=== PATIENT | male | born 1935 | race Caucasian/White ===

== ENCOUNTER 2022-01-13 07:43 | Day surgery (SDC) | payer OTHER ==
[2022-01-12 13:28] LABS: Protime INR 0.96
[2022-01-12 13:31] LABS: Absolute Lymphocytes (CBC) 1.6 K/uL (0.7-4.9); Hematocrit 45.4 % (39.6-49.0); Lymphocytes % 20.1 % (15.3-44.8); MCV 96.2 fL (80-100); MPV 7.6 fL (7.6-11.3); RBC Red Blood Cell Count 4.72 M/uL (4.33-5.43)
[2022-01-12 13:39] LABS: Potassium 4.1 mmol/L (3.5-5.1)
[2022-01-12 13:48] LABS: SARS-CoV-2 Antigen Rapid Res Negative (Negative)
[2022-01-13] MEDS ORDERED: NA CHLORIDE 0.9% 500 ML ONE (07:58)
[2022-01-13] MEDS ORDERED: LIDOCAINE 1% MPF 2 ML AMPULE ONE (09:02)
[2022-01-13] MEDS ORDERED: FENTANYL CITR 100 MCG/2 ML ONE (09:03)
[2022-01-13] MEDS ORDERED: MIDAZOLAM HCL 2 MG/2 ML INJ ONE (09:03)
[2022-01-13] MEDS ORDERED: NITROGLYCERIN 100 MCG/ML SYR (for cath lab use only) IV ONE (09:04)
[2022-01-13] MEDS ORDERED: NA CHLORIDE 0.9% 0 ML IV ONE (09:04)
[2022-01-13] MEDS ORDERED: ATROPINE SULF 1 MG/10 ML SYR IV ONE (09:04)
[2022-01-13] MEDS ORDERED: LIDOCAINE 1% MPF 5 ML VIAL ONE (09:22)
[2022-01-13 10:59] VITALS: O2SAT 94
[2022-01-13 11:41] VITALS: BP 114/65
[2022-01-13 11:42] VITALS: TEMP 97
--- NOTE | 2022-01-16 06:39 | OP ---
Surgeon: Krishna Adler MD Procedure: Left heart catheterization, selective coronary arteriogram, left ventriculogram, common f emoral artery angiogram. Indication: Unstable angina and abnormal stress test. History Of Present Illness: Mr. Trejo is 86, brought to the [employer] today as an outpatient be cause of abnormal stress test, continued chest pain, and shortness of breath. He was prepped and shaggy ped in a routine sterile fashion. Given Versed and fentanyl for sedation. A 6-Grenadian sheath introdu varun in the right common femoral artery successfully using a 6-Grenadian sheath and 10 cc of Xylocaine. Angiography there was normal. Angio-Seal was used to close the case. Arielle catheter left and righ t was used to do the diagnostic catheterization. He was found to have normal coronaries. He tolerat ed the procedure well. There were no complications. Blood loss was 5 mL. Anesthesia: Total conscious sedation was 30 minutes. Final Diagnoses: 1.Normal coronary arteries. 2.Normal left ventricular function. 3.Normal left ventricular end-diastolic pressure. 4.Normal common femoral artery angiogram. Plan: Plan is for medical therapy. He can go home after 2 hours of bedrest from the Angio-Seal. I will see him in the office in 2 weeks. Case was discussed with him and his family and Dr. Nuno. NOEL/ANAIS Voice ID: [id number] Report ID: [id number]
== END 2022-01-13 11:43 | disposition home or self-care (01) ==
LOC: CCL 07:43
DX: I20.0 Unstable angina (principal); R06.02 Shortness of breath; R94.39 Abnormal result of other cardiovascular function study; Z88.6 Allergy status to analgesic agent; Z88.8 Allergy status to other drugs, medicaments and biological substances; Z20.822 Contact with and (suspected) exposure to COVID-19
CPT/HCPCS: 85025; 80048; 36415; 85610; 82947; 85730; 93458; 87811; C1893; Q9967; J2250; J3010; J7040; J0583

== ENCOUNTER 2022-02-15 01:51 | Emergency (ER) | payer OTHER ==
--- NOTE | 2022-02-15 03:36 | ER ---
Nurse's Notes [facility] Name: Vitor Trejo Age: 86 yrs Sex: Male : 1935 Arrival Date: 02/15/2022 Time: 01:53 Bed 26 Private MD: Diagnosis: Dyspnea;Cough Presentation: 02/15 01:59 Chief complaint: Patient states: "I have a cough and shortness of breath". Coronavirus as6 screen: Client presents with at least one sign or symptom that may indicate coronavirus-19. Standard/surgical mask placed on the client. Ebola Screen: No symptoms or risks identified at this time. Initial Sepsis Screen: Does the patient meet any 2 criteria? No. Patient's initial sepsis screen is negative. Does the patient have a suspected source of infection? No. Patient's initial sepsis screen is negative. Risk Assessment: Do you want to hurt yourself or someone else? Patient reports no desire to harm self or others. Onset of symptoms was January 25, 2022. 01:59 Method Of Arrival: Wheelchair as6 01:59 Acuity: MILAGROS 3 as6 Triage Assessment: 02:05 General: Appears in no apparent distress. Behavior is calm, cooperative. Pain: Denies as6 pain. Respiratory: Reports shortness of breath cough that is Respiratory effort is even, unlabored, Onset: The symptoms/episode began/occurred 3 weeks , the patient has mild shortness of breath. Historical: - Allergies: 02:00 Aspirin; as6 - Home Meds: 02:00 metformin 500 mg Oral tab [Active]; metoprolol tartrate 50 mg Oral tab [Active]; as6 hydrochlorothiazide 25 mg Oral tab [Active]; Tradjenta 5 mg oral tab [Active]; atorvastatin 20 mg oral tab [Active]; - PMHx: 02:00 Diabetes mellitus; Congestive heart failure; Hypertensive disorder; as6 - PSHx: 02:00 arm; as6 - Immunization history:: Client reports receiving the 2nd dose of the Covid vaccine, moderna . - Social history:: Smoking status: Patient denies any tobacco usage or history of. Screenin:40 Abuse screen: Denies threats or abuse. Denies injuries from another. Nutritional as6 screening: No deficits noted. Tuberculosis screening: No symptoms or risk factors identified. Fall Risk None identified. Assessment: 03:41 General: pt refused testing, provider spoke with pt . as6 Vital Signs: 01:59 BP 135 / 79; Pulse 79; Resp 18 S; Temp 97.9(O); Pulse Ox 96% on R/A; Weight 68.95 kg as6 (R); Height 5 ft. 9 in. (175.26 cm) (R); Pain 0/10; 01:59 Body Mass Index 22.45 (68.95 kg, 175.26 cm) as6 ED Course: 01:53 Patient arrived in ED. bp1 02:00 Triage completed. as6 02:05 Arm band placed on. as6 03:00 Herrera Arellano, ABHISHEK is Primary Nurse. as6 03:17 Doug Pardo MD is Attending Physician. [facility] 03:36 Krishna Adler MD is Referral Physician. malcom 03:40 Bed in low position. Call light in reach. as6 03:40 No provider procedures requiring assistance completed. Patient did not have IV access as6 during this emergency room visit. Administered Medications: No medications were administered Medication: 03:40 VIS not applicable for this client. as6 Outcome: 03:36 Discharge ordered by . malcom 03:41 Discharged to home ambulatory. as6 03:41 Condition: stable 03:41 Discharge instructions given to patient, Instructed on discharge instructions, follow up and referral plans. Demonstrated understanding of instructions, follow-up care. 03:43 Patient left the ED. as6 Signatures: Doug Pardo MD MD cha Paniauga, Brittany bp1 Herrera Arellano, RN RN as6
--- NOTE | 2022-02-15 03:36 | EDPHYS ---
Physician Documentation [facility] Name: Vitor Trejo Age: 86 yrs Sex: Male : 1935 Arrival Date: 02/15/2022 Time: 01:53 Bed 26 Private MD: ED Physician Doug Pardo HPI: 02/15 03:31 This 86 yrs old Male presents to ER via Wheelchair with complaints of malcom Breathing Difficulty. 03:31 The patient has shortness of breath at rest, with light activity. Onset: The malcom symptoms/episode began/occurred just prior to arrival. Duration: The symptoms are continuous, and are steadily getting worse. The patient's shortness of breath has no apparent modifying factors. Associated signs and symptoms: The patient has no apparent associated signs or symptoms. Severity of symptoms: At their worst the symptoms were mild in the emergency department the symptoms are unchanged. The patient has not experienced similar symptoms in the past. Historical: - Allergies: 02:00 Aspirin; as6 - Home Meds: 02:00 metformin 500 mg Oral tab [Active]; metoprolol tartrate 50 mg Oral tab [Active]; as6 hydrochlorothiazide 25 mg Oral tab [Active]; Tradjenta 5 mg oral tab [Active]; atorvastatin 20 mg oral tab [Active]; - PMHx: 02:00 Diabetes mellitus; Congestive heart failure; Hypertensive disorder; as6 - PSHx: 02:00 arm; as6 - Immunization history:: Client reports receiving the 2nd dose of the Covid vaccine, moderna . - Social history:: Smoking status: Patient denies any tobacco usage or history of. ROS: 03:32 Constitutional: Negative for fever, chills, and weight loss, Eyes: Negative for injury, malcom pain, redness, and discharge, ENT: Negative for injury, pain, and discharge, Neck: Negative for injury, pain, and swelling, Abdomen/GI: Negative for abdominal pain, nausea, vomiting, diarrhea, and constipation, Back: Negative for injury and pain, : Negative for injury, bleeding, discharge, and swelling, MS/Extremity: Negative for injury and deformity, Skin: Negative for injury, rash, and discoloration, Neuro: Negative for headache, weakness, numbness, tingling, and seizure, Psych: Negative for depression, anxiety, suicide ideation, homicidal ideation, and hallucinations, Allergy/Immunology: Negative for hives, rash, and allergies, Endocrine: Negative for neck swelling, polydipsia, polyuria, polyphagia, and marked weight changes, Hematologic/Lymphatic: Negative for swollen nodes, abnormal bleeding, and unusual bruising. 03:32 Cardiovascular: Positive for chest pain, with cough. 03:32 Respiratory: Positive for cough, shortness of breath, at rest. Exam: 03:32 Constitutional: This is a well developed, well nourished patient who is awake, alert, malcom and in no acute distress. Head/Face: Normocephalic, atraumatic. Eyes: Pupils equal round and reactive to light, extra-ocular motions intact. Lids and lashes normal. Conjunctiva and sclera are non-icteric and not injected. Cornea within normal limits. Periorbital areas with no swelling, redness, or edema. ENT: Nares patent. No nasal discharge, no septal abnormalities noted. Tympanic membranes are normal and external auditory canals are clear. Oropharynx with no redness, swelling, or masses, exudates, or evidence of obstruction, uvula midline. Mucous membranes moist. Neck: Trachea midline, no thyromegaly or masses palpated, and no cervical lymphadenopathy. Supple, full range of motion without nuchal rigidity, or vertebral point tenderness. No Meningismus. Chest/axilla: Normal chest wall appearance and motion. Nontender with no deformity. No lesions are appreciated. Cardiovascular: Regular rate and rhythm with a normal S1 and S2. No gallops, murmurs, or rubs. Normal PMI, no JVD. No pulse deficits. Respiratory: Lungs have equal breath sounds bilaterally, clear to auscultation and percussion. No rales, rhonchi or wheezes noted. No increased work of breathing, no retractions or nasal flaring. Abdomen/GI: Soft, non-tender, with normal bowel sounds. No distension or tympany. No guarding or rebound. No evidence of tenderness throughout. Back: No spinal tenderness. No costovertebral tenderness. Full range of motion. Male : Normal genitalia with no discharge or lesions. Skin: Warm, dry with normal turgor. Normal color with no rashes, no lesions, and no evidence of cellulitis. MS/ Extremity: Pulses equal, no cyanosis. Neurovascular intact. Full, normal range of motion. Neuro: Awake and alert, GCS 15, oriented to person, place, time, and situation. Cranial nerves II-XII grossly intact. Motor strength 5/5 in all extremities. Sensory grossly intact. Cerebellar exam normal. Normal gait. Psych: Awake, alert, with orientation to person, place and time. Behavior, mood, and affect are within normal limits. 03:32 Musculoskeletal/extremity: ROM: intact in all extremities, full active range of motion, full passive range of motion, Circulation is intact in all extremities. Sensation intact. Compartment Syndrome exam of affected extremity: is normal. DVT Exam: No signs of deep vein thrombosis. no pain, no swelling, no tenderness, negative Homans' sign noted on exam, no appreciated bluish discoloration, no erythema, no increased warmth. 03:37 Chest/axilla: Inspection: normal, no acute changes, Palpation: is normal, no acute malcom changes, Axilla: are normal, no acute changes, Lymph nodes: lymphadenopathy is not appreciated. 03:37 Cardiovascular: Pulses: Pulses are 4+ in bilateral radial, brachial, femoral, popliteal, posterior tibial and and dorsalis pedis arteries.. Heart sounds: normal, normal S1and S2, no S3 or S4, no murmur, no rub, no gallop, JVD: is not appreciated. Vital Signs: 01:59 BP 135 / 79; Pulse 79; Resp 18 S; Temp 97.9(O); Pulse Ox 96% on R/A; Weight 68.95 kg as6 (R); Height 5 ft. 9 in. (175.26 cm) (R); Pain 0/10; 01:59 Body Mass Index 22.45 (68.95 kg, 175.26 cm) as6 MDM: 03:17 Patient medically screened. malcom 03:33 Differential diagnosis: Anemia asthma, CHF exacerbation, Chronic Obstructive Pulmonary malcom Disease Pneumothorax pulmonary edema, Pulmonary Embolism reactive airway disease, Sepsis Unstable Angina. Antibiotic administration: Not indicated. The patient's Wells Deep Vein Thrombosis Score was calculated as follows: Total Score: 0-2 Pts- Low Risk. Differential Diagnosis: Bronchitis Influenza Upper Respiratory Infection Sinusitis Pharyngitis Viral Syndrome Pneumonia. The patient's pulmonary embolism risk score was calculated as follows: Total Score: 0-2 points. This patient was found to be at low risk for a pulmonary embolism by using the Well's assessment criteria. Immunization status: Pneumococcal vaccine: Influenza vaccine: Data reviewed: vital signs, nurses notes. Data interpreted: dog bather: rate is 79 beats/min, rhythm is regular, Pulse oximetry: on room air is 96 %. Test interpretation: by ED physician or midlevel provider: ECG, plain radiologic studies. Counseling: I had a detailed discussion with the patient and/or guardian regarding: the historical points, exam findings, and any diagnostic results supporting the discharge/admit diagnosis. ED course: pt refused all labs, cxr, ekg , will follow up , feels better, dose not want any test. 02/15 03:20 Order name: EKG; Complete Time: 03:21 [facility] 02/15 03:20 Order name: Cardiac monitoring [facility] 02/15 03:20 Order name: EKG - Nurse/Tech [facility] 02/15 03:20 Order name: IV Saline Lock [facility] 02/15 03:20 Order name: Labs collected and sent [facility] 02/15 03:20 Order name: O2 Per Protocol [facility] 02/15 03:20 Order name: O2 Sat Monitoring [facility] 02/15 03:20 Order name: Urine Dipstick-Ancillary (obtain specimen) malcom Administered Medications: No medications were administered Disposition Summary: 02/15/22 03:36 Discharge Ordered Location: Home malcom Problem: new malcom Symptoms: have improved malcom Condition: Stable malcom Diagnosis - Dyspnea malcom - Cough malcom Followup: malcom - With: Private Physician - When: Upon discharge from the Emergency Department - Reason: Recheck today's complaints, Continuance of care, Re-evaluation by your physician Followup: malcom - With: Krishna Adler MD - When: Upon discharge from the Emergency Department - Reason: Recheck today's complaints, Continuance of care, Re-evaluation by your physician Discharge Instructions: - Discharge Summary Sheet malcom - Shortness of Breath, Adult malcom - Shortness of Breath, Adult, [id number] malcom - Cough, Adult, [id number] malcom - Cough, Adult malcom Forms: - Medication Reconciliation Form malcom - Thank You Letter malcom - Antibiotic Education malcom - Prescription Opioid Use malcom Signatures: Dispatcher [employer] EDDoug Lainez MD MD cha Slawson, Ashby, RN RN as6 Corrections: (The following items were deleted from the chart) 03:34 03:21 Chest Single View+[email or web address] ordered. EDMS EDMS
[2022-02-15 04:31] VITALS: BP 135/79; TEMP 97.9; O2SAT 96
== END 2022-02-15 03:43 | disposition home or self-care (01) ==
LOC: SUPCPDRO 01:51 → ER 01:51
DX: R06.00 Dyspnea, unspecified (principal); R05.9 Cough, unspecified; I10 Essential (primary) hypertension; E11.9 Type 2 diabetes mellitus without complications; I50.9 Heart failure, unspecified; Z88.6 Allergy status to analgesic agent

== ENCOUNTER 2024-06-13 21:19 | Emergency (ER) | payer OTHER ==
--- OUTSIDE RECORDS SUMMARY | 2024-06-13 21:22 | XMS REPORT | Continuity of Care Document ---
Author Name Unknown Address [address] [facility] [address] [place] [address] [facility] thconnect Address [address] [facility] [place] [address] Care Team Providers Care Adjunct Phlebotomy Instructor Name Role Phone None, None Primary Care Physician Shelbi Herndon APRN Attending Clinician HEMATAP ARNETT Attending Clinician Unavail able HematAp arnett X Attending Clinician Unava ilable Physician, No Primary or Family Admitting Clinic ministerio Unavailable Payers Payer Name Policy Type Policy Number Effective Date Expirati on Date Source [facility] MEDICARE ADVANTAGE [id number] 2022 00:00:00 Problems Condition Name Condition Details Condition Category Status Onset Date Resolution Date Last Treatment Date Treating Clinician Comments Source Benign hypertensi on Benign hypertensi on Disease Active 03-10 00:00: 00 [facility] Gastroesop hageal reflux disease Gastroesop hageal reflux disease Disease Active 03-10 00:00: 00 [facility] 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 Disease Active 2014-06 0 00:00: 00 [facility] Type 2 diabetes mellitus without complicati on Type 2 diabetes mellitus without complicati on Disease Active 08-01 00:00: 00 [facility] Allergies, Adverse Reactions, Alerts Allergy Name Allergy Type Status Severity Reaction(s) Onset Date Inactive Date Treating Clinician Comments Source aspirin DA Active MO BLEEDING 09-14 00:00: 00 [facility] Aspirin Allergy to substanc e Active 08-29 00:00: 00 [facility] Social History Social Habit Start Date Stop Date Quantity Comments Source Exposure to SARS-CoV-2 (event) 2022-09-18 00:00:00 2022-09-28 14:13:00 Not sure [facility] Alcohol intake 2022-09-28 00:00:00 2022-09-28 00:00:00 Lifetime non-drinker (finding) [facility] Tobacco use and exposure 2022-09-01 00:00:00 2022-09-01 00:00:00 Smokeless tobacco non-user [facility] Sex Ass[birth year] At 1935 00:00:00 1935 00:00:00 [facility] Smoking Status Start Date Stop Date Source Never smoked tobacco [facility] Medications Ordered Medication Name Filled Medication Name Start Date Stop Date Current Medication? Ordering Clinician Indication Dosage Frequency Signature (SIG) Comments Components Source metoprolol succinate XL (Toprol-XL) 50 MG 24 hr tablet 09-28 14:17: 57 Yes TAKE 1 TABLET TWICE DAILY [facility] pioglitazon e (Actos) 30 MG tablet 09-01 09:28: 09 09-01 00:00 :00 No TAKE 1 TABLET ONCE DAILY. [facility] metoprolol succinate XL (Toprol-XL) 50 MG 24 hr tablet 09-01 09:26: 41 Yes TAKE 1 TABLET TWICE DAILY [facility] furosemide (Lasix) 20 MG tablet 08-26 00:00: 00 Yes [facility] famotidine (Pepcid) 40 MG tablet - 00:00: 00 Yes [facility] atorvastati n (Lipitor) 20 MG tablet -24 00:00: 00 Yes [facility] Tradjenta 5 MG tablet - 00:00: 00 Yes [facility] Accu-Chek Guide test strip - 00:00: 00 Yes USE ONCE A DAY DIRECTED E11.9 [facility] hydroCHLORO thiazide (HYDRODiuri l) 12.5 MG tablet 1-10 00:00: 00 Yes [facility] pantoprazol e (ProtoNix) 40 MG EC tablet 06-19 00:00: 00 Yes 40mg Take 40 mg by mouth 1 (one) time each day before breakfast. TAKE 1 TABLET BY MOUTH EVERY DAY 30 MINUTES BEFORE BREAKFAST [facility] potassium chloride CR (Klor-Con M10) 10 MEQ ER tablet 06-19 00:00: 00 Yes 10meq QD Take 10 mEq by mouth 1 (one) time each day. [facility] metFORMIN (Glucophage ) 500 MG tablet 2021-06 00:00: 00 Yes [facility] Accu-Chek Softclix Lancets lancets 02-11 00:00: 00 Yes USE DIRECTED ONE TIME A DAY, DIAGNOSIS E11.9 [facility] Vital Signs Vital Name Observation Time Observation Value Comments S ource Systolic blood pressure 2022-09-28 19:18:00 132 mm[Hg] [facility] Diastolic blood pressure 2022-09-28 19:18:00 80 mm[Hg] [facility] Heart rate 2022-09-28 19:18:00 82 /min [facility] Body weight 2022-09-28 19:18:00 70.761 kg [facility] ealt BMI 2022-09-28 19:18:00 23.04 kg/m2 [facility] height 2022-09-01 14:25:00 175.3 cm [facility] Body weight 2022-09-01 14:25:00 71.215 kg [facility] ealt BMI 2022-09-01 14:25:00 23.18 kg/m2 [facility] ealt Procedures Procedure Date / Time Performed Performing Clinicia n Source ECG 12-LEAD 2022-09-28 19:16:00 Shelbi Herndon [facility] ECG 12-LEAD 2022-09-01 14:29:00 Ap Pereira [facility] Encounters Start Date/Time End Date/Time Encounter Type Admission Type Attending Clinicians Care Facility Care Department Encounter ID Source 2022-09-13 16:02:27 Outpatient [facility] [id number] [facility] 2022-09-05 11:55:46 Outpatient [facility] [id number] [facility] 2022-09-01 09:01:31 Outpatient [facility] [id number] [facility] 2022-08-23 10:30:26 Outpatient [facility] [id number] [facility] 2022-08-19 14:16:58 Outpatient [facility] [id number] [facility] 2022-08-15 14:16:16 Outpatient [facility] [id number] [facility] 2022-09-28 14:30:00 2022-09-28 14:37:35 Office Visit Yanick Shelbi [facility] [id number] [facility] 2022-09-15 12:00:00 2022-09-15 12:00:00 Outpatient AP PEREIRA [facility] [id number] [facility] 2022-09-15 11:15:00 2022-09-15 11:15:00 Outpatient Ap Pereira [facility] [id number] 2022-09-01 09:00:00 2022-09-01 09:50:08 Office Visit Ap Pereira [facility] [id number] [facility] Results Test Description Test Time Test Comments Results Result Co mments Source [facility]- XR CHEST 1 [id number] 00:00:00 [facility] 1935 Sex: M FAX: Ap Lindsay [phone] [place]: St: DEP Name: MACI MARROQUIN [facility] : 1935 Age/S: 87/M [address] [place] [address] Blvd Unit #: [id number] Loc: [place] [address] Phys: Ap Pereira MD Acct: [id number] Dis Date: Status: [facility] PHONE #: [phone] Exam Date: 09/15/20221700 FAX #: [phone] Reason: GEN CHANGE EXAMS: CPT CODE: [id number] XR CHEST 1 V [id number] PROCEDURE INFORMATION: Exam: XR Chest Exam date and time: 09/15/2022 4:41 PM Age: 87 years old Clinical indication: Other: Gen change TECHNIQUE: Imaging protocol: Radiologic exam of the chest. Views: 1 view. COMPARISON: CR XR CHEST 1V 09/15/2022 12:03 PM FINDINGS: Lungs: The lungs are clear except for mild left basilar parenchymal scarring. Left-sided dual lead transvenous pacemaker noted. Calcified granuloma noted at the left lung base. Pleural spaces: Unremarkable. No pleural effusion. No pneumothorax. Heart/Mediastinum: Heart size is within normal limits. Vasculature is unremarkable. Bones/joints: Unremarkable. IMPRESSION: No acute cardiopulmonary findings. Minor left basilar parenchymal scarring. at 0837 Reported and signed by:Jose Ramon Sanches M.D. CC: Ap Pereira MD Technologist: RT Josef(R) Trnscrd Date/Time/By: 09/16/2022 (0837) : By: [email or web address] Orig Print D/T: S: 09/16/2022 (0860) PAGE 1 Signed ReportGLUCOSE [id number] 16:24:00* Test Item Value Reference Range Interpretation Comme nts GLUCOSE BEDSIDE (test code = GLUBED) 177 MG/DL 70-110 H Performed by cer nilda boring machine operator at [facility] BASIC METABOLIC [id number] 12:25:00* Test Item Value Reference Range Interpretation Comme nts SODIUM (test code = NA) 138 mEq/L 134-147 N POTASSIUM (test code = K) 4.1 mEq/L 3.4-5.0 N CHLORIDE (test code = CL) 104 mEq/L 100-108 N CARBON DIOXIDE (test code = CO2) 30 mEq/l 21-33 N ANION GAP (test code = GAP) 8 0-20 N GLUCOSE (test code = GLU) 145 mg/dL 70-110 H BLOOD UREA NITROGEN (test code = BUN) 18 mg/dL 7-18 N GLOMERULAR FILTRATION RATE (test code = GFR) 58.9 70-80 L The Glomerular Filtration Rate is a calculated parameterbased on serum Creatinine, patient age and sex. GFR valuesless than 60 mL/min/1.73 square meters are indicative ofChronic Kidney Disease. Values less than 15 mL/min/1.73square meters indicate Kidney failure. The calculation forGFR is based on the CKD-EPI (2020) calculation. This formulais race indifferent and is the recommended formula for GFRby the National Kidney Foundation for Adults.The GFR will not calculate if the sex is unknown or if thepatient's age is <18 years. CREATININE (test code = CREAT) 1.2 mg/dL 0.6-1.3 N CALCIUM (test code = CA) 9.2 mg/dL 8.0-10.5 N PROTHROMBIN [id number] 12:19:00* Test Item Value Reference Range Interpretation Comme nts PROTHROMBIN TIME PATIENT (test code = PTP) 11.2 SECONDS 9.3-12.9 N INTERNATIONAL NORMAL RATIO (test code = INR) 1.0 0.8-1.2 N TARGET INR BY INDICATION Indication INR1. Prophylaxis of venous thrombosis 2.0 - 3.0 (orthopedic surgery), Prophylaxis of venous thrombosis (other than high-risk surgery), Treatment of Deep Vein Thrombosis/Pulmonary Embolism, Prevention of systemic embolism - Tissue heart valves, Acute Myocardial Infarction (to prevent systemic embolism), Valvular heart disease, Atrial Fibrillation, Bileaflet mechanical valve in aortic position.2. Mechanical prosthetic valves (high risk), 2.5 - 3.5 Presence of Lupus Anticoagulant or Antiphospholipid Antibodies, Prevention of systemic embolism - Acute Myocardial Infarction (to prevent recurrent infarct). GLUCOSE [id number] 12:12:00* Test Item Value Reference Range Interpretation Comme nts GLUCOSE BEDSIDE (test code = GLUBED) 144 MG/DL 70-110 H Performed by cer tified boring machine operator at [facility] CBC W/AUTO [id number] 12:11:00* Test Item Value Reference Range Interpretation Comme nts WHITE BLOOD CELL (test code = WBC) 8.8 x10 3/uL 4.5-11.0 N RED BLOOD CELL (test code = RBC) 4.57 x10 6/uL 4.00-5.60 N HEMOGLOBIN (test code = HGB) 14.6 g/dL 12.5-16.9 N HEMATOCRIT (test code = HCT) 43.2 % 37.5-50.7 N MEAN CELL VOLUME (test code = MCV) 94.5 fL 81.0-99.0 N MEAN CELL HGB (test code = MCH) 31.9 pg 27.0-33.0 N MEAN CELL HGB CONCETRATION (test code = MCHC) 33.8 g/dL 33.0-37.0 N RED CELL DISTRIBUTION WIDTH CV (test code = RDW) 13.1 % 11.5-14.5 N RED CELL DISTRIBUTION WIDTH SD (test code = RDW-SD) 44.7 fL 37.0-54.0 N PLATELET COUNT (test code = PLT) 208 x10 3/uL 150-400 N MEAN PLATELET VOLUME (test c ode = MPV) 9.5 fL 7.0-9.0 H NEUTROPHIL % (test code = NT%) 54.2 % 56.0-77.0 L IMMATURE GRANULOCYTE % (test code = IG%) 0.3 % 0.0-2.0 N LYMPHOCYTE % (test code = LY%) 29.7 % 14.0-32.0 N MONOCYTE % (test code = MO%) 12.4 % 4.8-9.0 H EOSINOPHIL % (test code = EO%) 3.1 % 0.3-3.7 N BASOPHIL % (test code = BA%) 0.3 % 0.0-2.0 N NUCLEATED RBC % (test code = NRBC%) 0.0 % 0-0 N NEUTROPHIL # (test code = NT#) 4.76 x10 3/uL 2.0-7.6 N IMMATURE GRANULOCYTE # (test code = IG#) 0.03 x10 3/uL 0.00-0.03 N LYMPHOCYTE # (test code = LY#) 2.61 x10 3/uL 1.0-3.8 N MONOCYTE # (test code = MO#) 1.09 x10 3/uL 0.1-0.8 H EOSINOPHIL # (test code = EO#) 0.27 x10 3/uL 0.0-0.2 H BASOPHIL # (test code = BA#) 0.03 x10 3/uL 0.0-0.2 N NUCLEATED RBC # (test code = NRBC#) 0.00 x10 3/uL 0.0-0.1 N MANUAL DIFF REQUIRED (test c ode = MDIFF) NO - XR CHEST 1 [id number] 00:00:00 [facility] 1935 Sex: M FAX: Ap Lindsay [phone] [place]: [address] St: REG Name: MACI MARROQUIN [facility] : 1935 Age/S: 87/M [address] [place] [address] Unit #: [id number] Loc: [place] [address] Phys: Ap Pereira MD Acct: [id number] Dis Date: Status: REG SD PHONE #: [phone] Exam Date: 09/15/2022 1249 FAX #: [phone] Reason: PRE PROCEDURE EXAMS: CPT CODE: [id number] XR CHEST 1 V [id number] PROCEDURE INFORMATION: Exam: XR Chest Exam date and time: 09/15/2022 12:03 PM Age: 87 years old Clinical indication: Pre-operative exam; Respiratory screening exam; Additional info: Pre procedure; () TECHNIQUE: Imaging protocol: Radiologic exam of the chest. Views: 1 view. COMPARISON: No relevant prior studies available. FINDINGS: Lungs: The lungs are hyperlucent which may be due to technique or reflect COPD. No appreciable pneumonia or edema. Calcified granuloma left lower lung. Pleural spaces: Noappreciable pleural effusion or pneumothorax. Heart/Mediastinum: Heart size normal. Cardiac implanted electronic device. Bones/joints: Negative acute. IMPRESSION: No acute finding. ElectronicallySigned by Justin Granger on 09/15/2022 at 1316 Reported and signed by: Ok Granger M.D. CC: Ap Pereira MD Technologist: RT Edmund(R) Trnscrd Date/Time/By: 09/15/2022 (8472) : By:ErwinTTV Orig Print D/T: S: 09/15/2022 (7482) PAGE 1 Signed ReportECG [id number] 14:29:00* Test Item Value Reference Range Interpretation Comme nts Lab Interpretation (test cod e = [id number]) Abnormal [facility]
--- NOTE | 2024-06-13 22:12 | RAD REPORT ---
EXAMINATION: ONE VIEW CHEST XR CLINICAL INDICATION: CHEST PAIN TECHNIQUE: Frontal chest projection is submitted. Examination is limited by patient positioning and t echnique. COMPARISON: 01/05/2022 FINDINGS: The lungs are emphysematous. Calcified granuloma noted left lung base, benign. The heart is normal in size. Dual lead pacer device. IMPRESSION: COPD without an acute process suspected.
[2024-06-13 22:34] LABS: Absolute Eosinophils 0.2 K/uL (0-0.5); Absolute Lymphocytes (CBC) 1.8 K/uL (0.7-4.9); Absolute Monocytes 0.9 K/uL (0.1-1.3); Absolute Neutrophil 5.9 K/uL (1.8-8.0); Basophils % 0.3 % (0-1.3); Eosinophils % 2.1 % (0-4.4); Hematocrit 41.3 % (39.6-49.0); Hemoglobin 13.7 g/dL (13.6-17.9); Lymphocytes % 20.2 % (15.3-44.8); MCH 30.9 pg (27.0-35.0); MCV 93.4 fL (80-100); Monocytes % 10.7 % (3.3-12.3); Neutrophils % 66.7 % (41.7-73.7); Platelets 263 thou/uL (152-406); RBC Red Blood Cell Count 4.43 M/uL (4.33-5.43); Red Cell Distribution Width 14.2 % (12.1-15.2)
[2024-06-13 22:39] LABS: PT Prothrombin Time 10.8 SECONDS (9.4-12.5); Protime INR 0.96
[2024-06-13 22:56] LABS: ALT/SGPT 16 U/L (16-61); AST/SGOT 12 U/L (15-37); Albumin 3.3 g/dL (3.4-5.0); Albumin/Globulin Ratio 0.8 (1.1-1.8); Alkaline Phosphatase 85 U/L (45-117); BUN Blood Urea Nitrogen 22 mg/dL (7-18); Bicarbonate 26 mEq/L (21-32); Bilirubin Direct 0.2 mg/dL (0-0.2); Bilirubin Indirect, Calculated 0.4 mg/dL (0.2-0.8); Bilirubin Total 0.6 mg/dL (0.2-1.0); Globulin 4.1 g/dL (2.3-3.5); Glomerular Filtration Rate 69 ml/min (=/>90); Glucose Level 151 mg/dL (74-106); NT PRO-BNP 427 pg/mL (<450); Protein, Total 7.4 g/dL (6.4-8.2); Sodium Level 134 mEq/L (136-145); Troponin High Sensitivity < 3.0 pg/mL (<58.9)
--- NOTE | 2024-06-13 23:26 | EDPHYS ---
Physician Documentation [facility] Name: Vitor Trejo Age: 89 yrs Sex: Male : 1935 Arrival Date: 06/13/2024 Time: 21:19 Bed 26 Private MD: ED Physician Flex Concepcion HPI: 06/13 21:34 This 89 yrs old Male presents to ER via Unassigned with complaints of High Blood sp4 Pressure. 06/14 20:45 Patient presents with elevated blood pressures at home on the order of 160/90. Patient sp4 denied any symptoms today. Historical: - Allergies: 06/13 21:42 Aspirin; cm10 - PMHx: 21:42 Congestive heart failure; diabetes mellitus; Hypertensive disorder; cm10 - PSHx: 21:42 arm; cm10 - Immunization history:: Adult Immunizations up to date. - Infectious Disease History:: Denies. - Social history:: Smoking status: Patient denies any tobacco usage or history of. - Family history:: not pertinent. ROS: 06/14 20:45 Constitutional: Negative for fever, chills, and weight loss, positive for elevated sp4 blood pressure All other systems are negative, Exam: 06/13 23:23 Constitutional: This is a well developed, well nourished patient who is awake, alert, sp4 and in no acute distress. Head/Face: Normocephalic, atraumatic. Eyes: Pupils equal round and reactive to light, extra-ocular motions intact. Lids and lashes normal. Conjunctiva and sclera are not injected. Cornea within normal limits. Periorbital areas with no swelling, redness, or edema. ENT: Nares patent. No nasal discharge, no septal abnormalities noted. Tympanic membranes are normal and external auditory canals are clear. Oropharynx with no redness, swelling, or masses, exudates, or evidence of obstruction, uvula midline. Mucous membranes moist. Neck: Trachea midline, no thyromegaly or masses palpated, and no cervical lymphadenopathy. Supple, full range of motion without nuchal rigidity, or vertebral point tenderness. Chest/axilla: Normal chest wall appearance and motion. Nontender with no deformity. No lesions are appreciated. Cardiovascular: Regular rate and rhythm with a normal S1 and S2. No gallops, murmurs, or rubs. Normal PMI, no JVD. No pulse deficits. Respiratory: Lungs have equal breath sounds bilaterally, clear to auscultation and percussion. No rales, rhonchi or wheezes noted. No increased work of breathing, no retractions or nasal flaring. Abdomen/GI: Soft, with normal bowel sounds. No distension or tympany. No guarding or rebound. No evidence of tenderness throughout. Back: No spinal tenderness. No costovertebral tenderness. Skin: Warm, dry with normal turgor. Normal color with no rashes, no lesions, and no evidence of cellulitis. MS/ Extremity: Pulses equal, no cyanosis. Neurovascular intact. Full, normal range of motion. Neuro: Awake and alert, GCS 15, oriented to person, place, time, and situation. Cranial nerves II-XII grossly intact. Motor strength 5/5 in all extremities. Sensory grossly intact. Psych: Awake, alert, with orientation to person, place and time. Behavior, mood, and affect are within normal limits ECG was reviewed by the Attending Physician. EKG at 2220 paced rhythm rate 81 Vital Signs: 21:41 BP 183 / 96; Pulse 91; Resp 16; Temp 97.6(TE); Pulse Ox 95% on R/A; Weight 72.57 kg; cm10 Height 5 ft. 10 in. ; Pain 3/10; 22:31 BP 156 / 86; Pulse 80; Resp 16; Pulse Ox 95% on R/A; jb4 21:41 Body Mass Index 22.96 (72.57 kg, 177.8 cm) cm10 21:41 Pain Scale: Adult cm10 [place] Coma Score: 23:23 Eye Response: spontaneous(4). Motor Response: obeys commands(6). Verbal Response: sp4 oriented(5). Total: 15. MDM: 22:22 Medical Screening Exam initiated sp4 23:23 ED course: EXAMINATION: ONE VIEW CHEST XR CLINICAL INDICATION: CHEST PAIN TECHNIQUE: sp4 Frontal chest projection is submitted. Examination is limited by patient positioning and technique. COMPARISON: 01/05/2022 FINDINGS: The lungs are emphysematous. Calcified granuloma noted left lung base, benign. The heart is normal in size. Dual lead pacer device. IMPRESSION: COPD without an acute process suspected.. 06/14 20:45 Differential diagnosis: hypertensive crisis, Malignant HTN, Renal insufficiency. Data sp4 reviewed: vital signs, nurses notes, old medical records, lab test result(s), EKG, radiologic studies, plain films. Consideration of Admission/Observation Escalation of care including admission/observation considered. ED course: Blood pressures have improved spontaneously. Patient advised to continue his metoprolol as prescribed. Patient advised to keep blood pressure diary and see his primary care physician in 2 weeks for blood pressure assessment in the office. 06/13 21:34 Order name: Basic Metabolic Panel; Complete Time: 23:17 sp4 06/13 21:34 Order name: CBC with Diff; Complete Time: 23:17 sp4 06/13 21:34 Order name: LFT's; Complete Time: 23:17 sp4 06/13 21:34 Order name: Magnesium; Complete Time: 23:17 sp4 06/13 21:34 Order name: NT PRO-BNP; Complete Time: 23:17 sp4 06/13 21:34 Order name: PT-INR; Complete Time: 23:17 sp4 06/13 21:34 Order name: Troponin HS; Complete Time: 23:17 sp4 06/13 21:34 Order name: XRAY Chest (1 view); Complete Time: 23:17 sp4 06/13 21:34 Order name: EKG; Complete Time: 21:35 sp4 06/13 21:34 Order name: Cardiac monitoring; Complete Time: 22:27 sp4 06/13 21:34 Order name: EKG - Nurse/Tech; Complete Time: 22:27 sp4 06/13 21:34 Order name: IV Saline Lock; Complete Time: 22:27 sp4 06/13 21:34 Order name: Labs collected and sent; Complete Time: 22:27 sp4 06/13 21:34 Order name: O2 Per Protocol; Complete Time: 22:24 sp4 06/13 21:34 Order name: O2 Sat Monitoring; Complete Time: 22:24 sp4 EC/26 22:20 Rate is 81 beats/min. Rhythm is regular, Paced. No ST changes noted. Clinical sp4 impression: No evidence of ischemia. Interpreted by me. Reviewed by me. Administered Medications: No medications were administered Disposition Summary: 06/13/24 23:25 Discharge Ordered Notes: Location: Home sp4 Problem: new sp4 Symptoms: have improved sp4 Condition: Stable sp4 Diagnosis - Essential (primary) hypertension sp4 - Elevated blood pressure reading sp4 Followup: sp4 - With: Yimi Nuno MD - When: 10 - 14 days - Reason: Recheck today's complaints Discharge Instructions: - Discharge Summary Sheet sp4 - Hypertension, Adult, [id number] sp4 Forms: - Patient Portal Instructions sp4 Signatures: Dispatcher [employer] Flex Giles MD MD sp4 Talia Kay RN RN cm10
--- NOTE | 2024-06-13 23:26 | ER ---
Nurse's Notes [facility] Name: Vitor Trejo Age: 89 yrs Sex: Male : 1935 Arrival Date: 06/13/2024 Time: 21:19 Bed 26 Private MD: Diagnosis: Essential (primary) hypertension;Elevated blood pressure reading Presentation: 06/13 21:41 Chief complaint: Patient states: Checked his blood pressure tonight because he has been cm10 feeling "weird" and his blood pressure was 170s/100s. Pt complaining of headache at this time. Coronavirus screen: Client denies travel out of the [place] in the last 14 days. Ebola Screen: Patient denies travel to an Ebola-affected area in the 21 days before illness onset. No symptoms or risks identified at this time. Initial Sepsis Screen: Does the patient meet any 2 criteria? No. Patient's initial sepsis screen is negative. Does the patient have a suspected source of infection? No. Patient's initial sepsis screen is negative. Risk Assessment: Do you want to hurt yourself or someone else? Patient reports no desire to harm self or others. Onset of symptoms was June 13, 2024. 21:41 Method Of Arrival: Ambulatory cm10 21:41 Acuity: MILAGROS 3 cm10 Triage Assessment: 21:43 General: Appears in no apparent distress. comfortable, Behavior is calm, cooperative. cm10 Neuro: No deficits noted. Level of Consciousness is awake, alert, obeys commands, Oriented to person, place, time, situation, Appropriate for age. Respiratory: No deficits noted. Airway is patent Respiratory effort is even, unlabored, Respiratory pattern is regular, symmetrical. Historical: - Allergies: 21:42 Aspirin; cm10 - PMHx: 21:42 Congestive heart failure; diabetes mellitus; Hypertensive disorder; cm10 - PSHx: 21:42 arm; cm10 - Immunization history:: Adult Immunizations up to date. - Infectious Disease History:: Denies. - Social history:: Smoking status: Patient denies any tobacco usage or history of. - Family history:: not pertinent. Screenin:42 [facility] ED Fall Risk Assessment (Adult) History of falling in the last 3 months, jb4 including since admission No falls in past 3 months (0 pts) Confusion or Disorientation No (0 pts) Intoxicated or Sedated No (0 pts) Impaired Gait No (0 pts) Mobility Assist Device Used No (0 pt) Altered Elimination No (0 pt) Score/Fall Risk Level 0 - 2 = Low Risk Oriented to surroundings, Maintained a safe environment. Abuse screen: Denies threats or abuse. Nutritional screening: No deficits noted. Tuberculosis screening: No symptoms or risk factors identified. Assessment: 22:30 General: Appears in no apparent distress. comfortable, Behavior is calm, cooperative, jb4 appropriate for age. Pain: Complains of pain in headache Pain does not radiate. Pain currently is 3 out of 10 on a pain scale. Neuro: Level of Consciousness is awake, alert, obeys commands, Oriented to person, place, time, situation. Cardiovascular: Patient's skin is warm and dry. Respiratory: Airway is patent Respiratory effort is even, unlabored, Respiratory pattern is regular, symmetrical. Derm: Skin is intact, Skin is pink, warm \\T\\ dry. Musculoskeletal: Circulation, motion, and sensation intact. Range of motion: intact in all extremities. 23:42 Reassessment: Patient appears in no apparent distress at this time. Patient and/or jb4 family updated on plan of care and expected duration. Pain level reassessed. Patient is alert, oriented x 3, equal unlabored respirations, skin warm/dry/pink. Vital Signs: 21:41 BP 183 / 96; Pulse 91; Resp 16; Temp 97.6(TE); Pulse Ox 95% on R/A; Weight 72.57 kg; cm10 Height 5 ft. 10 in. ; Pain 3/10; 22:31 BP 156 / 86; Pulse 80; Resp 16; Pulse Ox 95% on R/A; jb4 21:41 Body Mass Index 22.96 (72.57 kg, 177.8 cm) cm10 21:41 Pain Scale: Adult cm10 [place] Coma Score: 23:23 Eye Response: spontaneous(4). Motor Response: obeys commands(6). Verbal Response: sp4 oriented(5). Total: 15. ED Course: 21:21 Patient arrived in ED. mr 21:34 Flex Concepcion MD is Attending Physician. sp4 21:42 Triage completed. cm10 21:43 Arm band placed on right wrist. Patient placed in an exam room, on a stretcher. cm10 22:01 XRAY Chest (1 view) In Process Unspecified. EDMS 22:28 Initial lab(s) drawn, by me, sent to lab. EKG done, by ED staff. Inserted saline lock: vk 20 gauge in left forearm, using aseptic technique. Blood collected. Flushed with 10 mL NS. 23:25 Yimi Nuno MD is Referral Physician. sp4 23:42 Patient has correct armband on for positive identification. Bed in low position. Call jb4 light in reach. Side rails up X 1. Provided Education on: discharge instructions.. 23:42 No provider procedures requiring assistance completed. IV discontinued, intact, jb4 bleeding controlled, No redness/swelling at site. Pressure dressing applied. Administered Medications: No medications were administered Medication: 23:42 VIS not applicable for this client. jb4 Outcome: 23:25 Discharge ordered by . sp4 23:42 Discharged to home jb4 23:42 Condition: stable 23:42 Discharge instructions given to patient, Instructed on discharge instructions, follow up and referral plans. Demonstrated understanding of instructions, follow-up care, 23:43 Patient left the ED. jb4 Signatures: Dispatcher [employer] EDMA [place], Reg Reg mr Cruz Bustillo, RN RN jb4 Flex Concepcion MD MD sp4 Talia Kay RN RN cm10 Lesia Foster
[2024-06-14 00:27] VITALS: TEMP 97.6; O2SAT 95
[2024-06-14 00:38] VITALS: BP 156/86
--- NOTE | 2024-06-17 11:20 | EKG ---
Test Date: 2024-06-13 Test Time: 22:20:45 Door Furring Installer: JAQUAN MEASUREMENT RESULTS: Intervals: Rate: 81 MS: 194 QRSD: 180 QT: 428 QTc: 497 [place]: P: 55 MS: 194 QRS: -71 T: 91 INTERPRETIVE STATEMENTS: Atrial-sensed ventricular-paced rhythm Abnormal ECG Compared to ECG 02/23/2012 21:56:22 Sinus rhythm no longer present AV block, complete (third-degree) no longer present Right bundle-branch block no longer present Electronically Signed On 06-17-24 11:14:26 FIELD AGENT by Moshe Tabor
== END 2024-06-13 23:43 | disposition home or self-care (01) ==
LOC: ER 21:19
DX: I10 Essential (primary) hypertension (principal); J44.9 Chronic obstructive pulmonary disease, unspecified; E11.9 Type 2 diabetes mellitus without complications; I50.9 Heart failure, unspecified
CPT/HCPCS: 36415; 71045; 80048; 80076; 83735; 83880; 84484; 85025; 85610; 93005; 99284